=== PATIENT | female | born 1940 | race Two or more races ===

== ENCOUNTER 2023-05-18 13:33 | Outpatient (CLI) | payer OTHER | END 2023-05-18 13:49 | disposition home or self-care (01) | LOC: SONOGRAMA 13:33 | PROVIDERS: ATTEND Pathology Anatomic Pathology & Clinical Pathology | DX: D17.23 Benign lipomatous neoplasm of skin and subcutaneous tissue of right leg (principal); C46 Kaposi's sarcoma ==